=== PATIENT | male | born 1985 | race Caucasian/White ===

== ENCOUNTER 2022-05-17 17:47 | Emergency (ER) | payer SELFPAY ==
[~2022-05-17] VITALS: Ht 177.8 cm; Wt 87.4 kg
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
[2022-05-17] MEDS ORDERED: HYDROcodone/APAP 5 MG/325 MG (LORTAB) TAB PO ONE (18:30)
[2022-05-17] MEDS ORDERED: ACHD5005 PO (18:31)
[2022-05-17 18:39] VITALS: BP 135/83
== END 2022-05-17 18:39 | disposition home or self-care (01) ==
LOC: ER FS 17:49
DX: S43.101A Unspecified dislocation of right acromioclavicular joint, initial encounter (principal); S01.01XA Laceration without foreign body of scalp, initial encounter; Z28.310 Unvaccinated for COVID-19; V48.5XXA Car driver injured in noncollision transport accident in traffic accident, initial encounter
CPT/HCPCS: 70450; 71045; 73030